=== PATIENT | female | born 1985 | race Caucasian/White ===

== ENCOUNTER → 2024-02-24 | Outpatient (CLI) | payer SELFPAY, OTHER ==
--- NOTE | 2024-02-24 12:36 | US_ITS ---
INDICATION: prolapse EXAMINATION: Ultrasound US Pelvis Non OB Complete With Transvaginal Imaging TECHNIQUE: Transabdominal and transvaginal pelvic ultrasound was performed. Grayscale, spectral waveform, and color flow Doppler evaluation of the adnexa. COMPARISON: None. FINDINGS: UTERUS: Anteverted. The uterus measures 10 cm in length.. There is no uterine mass. The endometrial stripe measures 9 mm in AP diameter which is within normal limits. RIGHT OVARY: Not visualized. Dilated right ovarian veins measuring up to 8 mm. LEFT OVARY: Measures 2.8 x 3.1 x 1.8 cm. Non-enlarged, normal echogenicity. There is normal arterial inflow and venous outflow present in the left ovary. 2 cm dominant follicle. Dilated left ovarian veins measuring up to 10 mm. FREE FLUID: None. US/Pelvic w/ Transvaginal IMPRESSION: Pelvic congestion syndrome. Electronically Signed: Rafael Alexander MD at 23:34 EDT ,
--- NOTE | 2024-02-24 12:37 | US_ITS ---
INDICATION: PROLAPSE UNILATERAL FALLOPIAN TUBE EXAMINATION: Ultrasound US Kidney(s) complete (eg, kidneys and bladder) TECHNIQUE: Preston scale and color doppler images were obtained of the kidneys. COMPARISON: None. FINDINGS: RIGHT KIDNEY: Measures 10.6 cm in length.. There is no hydronephrosis. No shadowing calculus, focal lesion or perinephric collection is demonstrated. LEFT KIDNEY: Measures 11.1 cm in length.. There is no hydronephrosis. No shadowing calculus, focal lesion or perinephric collection is demonstrated. URINARY BLADDER: No acute abnormality. US/Kidney and Bladder IMPRESSION: Normal renal ultrasound. Electronically Signed: Rafael Alexander MD at 0:04 EDT ,
== END | disposition home or self-care (01) ==
PROVIDERS: PCP Family Medicine; Referring Provider Urology; Visit Provider Urology
DX: N83.4 Prolapse and hernia of ovary and fallopian tube (principal)
CPT/HCPCS: 76770; 76830; 76856

== ENCOUNTER 2024-09-23 07:49 | Inpatient (IN) | payer SELFPAY, OTHER ==
[2024-06-25 10:57] LABS: Hemoglobin 12.1 g/dL (12.0-15.0); Mean Corp Hgb Conc 32.7 g/dL (32-36); Mean Corpuscular Hgb 28.6 pg (27.0-32.0); Mean Corpuscular Volume 87.5 fL (81-99); Mean Platelet Vol. 9.5 fl (6.2-12.0); Platelet Count 295 K/mm3 (150-450); RBC Distribution Width CV 12.7 % (11.6-14.6); RBC Distribution Width SD 40.9 fl (35.1-43.9); Red Blood Count 4.23 M/mm3 (4.2-5.4); White Blood Count 6.1 K/mm3 (4.4-11.0)
[2024-06-25 11:09] LABS: Magnesium 2.1 mg/dL (1.6-2.6)
[2024-06-25 11:11] LABS: Internal QC Validated? YES +Cl - CLEAR BKGD; Pregnancy, Urine Negative Negative
[2024-06-25 11:12] LABS: Anion Gap 3 (5-15); BUN 18 mg/dL (7-18); Calcium,Total 9.2 mg/dL (8.5-10.1); Chloride 107 mmol/L (98-107); Creatinine, Serum 0.72 mg/dL (0.55-1.02); EST Glomerular Filtration Rate 97 mL/min (>60); Est Glom Filt Rate - Afr Amer 117 mL/min (>60); Glucose 76 mg/dL (74-106); Potassium 4.1 mmol/L (3.5-5.1); Sodium Level 139 mmol/L (136-145)
--- NOTE | 2024-09-19 13:44 | PAT.ANE_ITS ---
Pre-Assessment Diagnosis/Proposed Procedure Planned Operative Procedure(s): LAV BSO PER DR ROMERO A&P REPAIR PER DR PINON Anesthesia History Anesthesia History - user experience team lead: Anesthesia History - user experience team lead Hx Hospitalization No 09/19/24 13:38 Any Problems With Anesthesia No 09/19/24 13:38 Cholinesterase deficiency No 09/19/24 13:38 You/Your Family Experience No 09/19/24 13:38 fever (hyperthermia) with Relationship Recent Exposure to Contagious Disease Does patient have nerve No 09/19/24 13:38 stimulator Patient instructed to have device shut off --Does patient have Pacemaker or ICD? When Was Last Pacemaker Check QUESTION #4 FULL TEXT: You/Your Family Experience fever (hyperthermia) with Anesthesia Last Oral Intake Last Oral intake: Last Oral Intake NPO since Meds taken in AM with sips of water? Meds patient instructed to take am of surgery PONV PONV - user experience team lead: PONV - user experience team lead Female Yes 09/19/24 13:38 HX of Motion Sickness No 09/19/24 13:38 HX of N/V After Surgery No 09/19/24 13:38 Non-Smoker Yes 09/19/24 13:38 Duration of Surgery greater Yes 09/19/24 13:38 than 60 minutes Number of Risk Factors 3 09/19/24 13:38 PONV Score Moderate Risk 09/19/24 13:38 Height & Weight Height & Weight: Anesthesia: Height & Weight Height 5 ft 3 in 08/30/24 13:48 Respiratory Assessment Respiratory Assessment - user experience team lead: Respiratory Tract Infection Hx - user experience team lead Hx Respiratory Tract Infection No 09/19/24 13:38 STOP Sleep Apnea STOP Sleep Apnea - user experience team lead: STOP Sleep Apnea - user experience team lead Hx Hypertension No 09/19/24 13:38 Hx Sleep Apnea No 09/19/24 13:38 CPAP BIPAP Do you snore loudly (louder No 09/19/24 13:38 than talking or can be heard Do you often feel tired/ No 09/19/24 13:38 fatigued/ sleepy during daytime? Has anyone observed you stop No 09/19/24 13:38 breathing during sleep? STOP Results Negative 09/19/24 13:38 QUESTION #5 FULL TEXT : Do you snore loudly (louder than talking or can be heard through closed doors)? Tobacco Use History Tobacco Use History - user experience team lead: Tobacco Use History - user experience team lead Tobacco Use Smoking Status Never smoker 09/19/24 13:38 Hx Tobacco Use No 09/19/24 13:38 Years Smoking Packs Smoked per Day Smoking Cessation Date was within the last 15 years Hx Smoking Cessation Date Hx Smoking Cessation Counseling Hematologic Medial History Hematologic Hx - user experience team lead: Hematologic Medical Hx - surveillance operator Hx of Blood Transfusion No 09/19/24 13:38 Hx of Transfusion in last 3 No 09/19/24 13:38 Months Date of Last Transfusion (if within last 3 months) Ever experience any problems No 09/19/24 13:38 with transfusion(s)? Specify any problems Hx of Preganancy in last 3 No 09/19/24 13:38 Months Nurse Filling Out Transfusion NBUCHER 09/19/24 13:38 & Questions: Date: 09/19/24 09/19/24 13:38 Time: 13:38 09/19/24 13:38 Patient unable to answer at this time (ie. confused, unrespo /Reproduction History /Reproductive History - user experience team lead: /Reproductive Hx- user experience team lead Hx Now No 09/19/24 13:38 Gestational Age (in weeks): EDC: Hx Hx Para Hx Section SAB No 09/19/24 13:38 PFSH Medical History Wears glasses Female bladder prolapse Low iron Non-smoker Home Medications ?Medication ?Instructions ?Recorded ?Last Taken ?Type calcium carbonate (Calcium 600) 600 mg PO DAILY Unknown History multivitamin 1 tab PO DAILY 10/06/23 Unkn own History magnesium 200 mg tablet 200 mg PO DAILY 09/19/24 Unk nown History Allergy/AdvReac Type Severity Reaction Status Date / Time No Known Allergies Allergy Verified 09/19/24 13:37 Family History Aunt Breast cancer Aunt Colon cancer Surgical History H/O tubal ligation Status post bilateral salpingectomy S/P tonsillectomy Social History household members: spouse current occupational status: employed current occupation: [employer] Smoking Status: Never smoker alcohol intake: never substance use type: does not use seatbelt use: always do you feel safe at home: Yes additional social history: - [employer] Recommendation Anesthesia Recommendation Anesthesia recommendation: OPTIMIZED for anesthesia
[2024-09-19 17:02] LABS: Hematocrit 33.5 % (37-47); Hemoglobin 10.9 g/dL (12.0-15.0); Mean Corp Hgb Conc 32.5 g/dL (32-36); Mean Corpuscular Volume 89.1 fL (81-99); Mean Platelet Vol. 10.9 fl (6.2-12.0); Platelet Count 206 K/mm3 (150-450); RBC Distribution Width SD 42.3 fl (35.1-43.9); Red Blood Count 3.76 M/mm3 (4.2-5.4); White Blood Count 3.4 K/mm3 (4.4-11.0)
[2024-09-23] VITALS (15 sets, daily range): BP systolic 96–112; BP diastolic 64–73; PULSE 56–92; RESP 11–18; TEMP 36.3–36.9; O2SAT 97–100; BMI 28.7; BMI 28.3
[2024-09-23 05:44] LABS: Internal QC Validated? YES +Cl - CLEAR BKGD; Pregnancy, Urine Negative Negative
[2024-09-23] MEDS: Gabapentin 600 MG Tablet PO (06:22)
[2024-09-23] MEDS: Lactated Ringers 1,000 ML 40 ML IV (06:22)
[2024-09-23] MEDS: Acetaminophen 500 MG Tablet 1000 MG PO ×3 (06:22→17:20)
[2024-09-23] MEDS: Magnesium 1 GM over 15 mins IV (06:23)
--- NOTE | 2024-09-23 06:54 | PRE.ANES_ITS ---
ASA Classification* ASA Classification ASA Classification: 1 Assessment & Plan Anesthesia* Anesthesia Assessment Anesthesia Assessment: Discussed sedation and/or anesthesia options, risks, benefits, and alternatives with patient/parents/legal guardian/POA. Questions invited. The patient/parents/legal guardian/POA seems to understand and agrees to proceed with anesthesia plan. Reviewed the physical assessment, medical history, allergy history and patient home medications list prior to surgery/procedure/anesthetic and documented any changes. Performed airway and anesthesia risk assessments. Anesthesia Type Anesthesia Type: General History Source History Obtained from:: Patient and Chart Anesthesia Focused Assessment* Temperature: 98.5 F Pulse Rate: 82 Blood Pressure: 112/70 Respiratory Rate: 16 Pulse Ox: 100 Oxygen Delivery Method: Room Air Airway Assessment Mouth opens: 1 cm Mallampati Score: I Teeth Condition: Intact Neck Range of motion (ROM): Full ROM Focused Labs Anesthesia Preop lab: CBC WBC 3.4 K/mm3 (4.4-11.0) L 09/19/24 13:47 09/19/24 RBC 3.76 M/mm3 (4.2-5.4) L 09/19/24 13:47 09/19/24 Hgb 10.9 g/dL (12.0-15.0) L 09/19/24 13:47 5 Hct 33.5 % (37-47) L 09/19/24 13:47 09/19/24 Plt Count 206 K/mm3 (150-450) 09/19/24 13:47 09/19/24 CHEMISTRY Potassium 4.1 mmol/L (3.5-5.1) 06/25/24 10:37 06/25/24 Sodium 139 mmol/L (136-145) 06/25/24 10:37 06/25/24 Magnesium 2.1 mg/dL (1.6-2.6) 06/25/24 10:37 06/25/24 BUN 18 mg/dL (7-18) 06/25/24 10:37 06/25/24 Creatinine 0.72 mg/dL (0.55-1.02) 06/25/24 10:37 06/25/24 Glucose 76 mg/dL (74-106) 06/25/24 10:37 06/25/24 COAG Urine Test Negative Negative 09/23/24 05:30 09/23/24 Pre-Assessment Diagnosis/Proposed Procedure Planned Operative Procedure(s): LAVH BSO PER DR ROMERO A&P REPAIR PER DR PINON Anesthesia History 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 When Was Last Pacemaker Check QUESTION #4 FULL TEXT: You/Your Family Experience fever (hyperthermia) with Anesthesia Last Oral Intake Last Oral intake: Last Oral Intake NPO since 03:30 09/23/24 06:04 Meds taken in AM with sips of No 09/23/24 06:04 water? Meds patient instructed to take am of surgery Any additional information?: Yes NPO since: 03:30 (Patient had preop Ensure at 3:30 AM.) Meds taken in AM with sips of water?: No PONV PONV - mechanical process engineer: PONV - mechanical process engineer Female Yes 09/19/24 13:38 HX of Motion Sickness No 09/19/24 13:38 HX of N/V After Surgery No 09/19/24 13:38 Non-Smoker Yes 09/19/24 13:38 Duration of Surgery greater Yes 09/19/24 13:38 than 60 minutes Number of Risk Factors 3 09/19/24 13:38 PONV Score Moderate Risk 09/19/24 13:38 Height & Weight Height & Weight: Anesthesia: Height & Weight Height 5 ft 3 in 09/23/24 06:04 Weight: 73.482 kg 09/23/24 06:04 Body Mass Index (BMI) 28.7 09/23/24 06:04 Respiratory Assessment Respiratory Assessment - mechanical process engineer: Respiratory Tract Infection Hx - mechanical process engineer Hx Respiratory Tract Infection No 09/19/24 13:38 STOP Sleep Apnea STOP Sleep Apnea - mechanical process engineer: STOP Sleep Apnea - mechanical process engineer Hx Hypertension No 09/19/24 13:38 Hx Sleep Apnea No 09/19/24 13:38 CPAP BIPAP Do you snore loudly (louder No 09/19/24 13:38 than talking or can be heard Do you often feel tired/ No 09/19/24 13:38 fatigued/ sleepy during daytime? Has anyone observed you stop No 09/19/24 13:38 breathing during sleep? STOP Results Negative 09/19/24 13:38 QUESTION #5 FULL TEXT : Do you snore loudly (louder than talking or can be heard through closed doors)? 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 Specify any problems Hx of Preganancy in last 3 No 09/19/24 13:38 Months Nurse Filling Out Transfusion NBUCHER 09/19/24 13:38 & Questions: Date: 09/19/24 09/19/24 13:38 Time: 13:38 09/19/24 13:38 Patient unable to answer at this time (ie. confused, unrespo /Reproduction History /Reproductive History - mechanical process engineer: /Reproductive Hx- mechanical process engineer Hx Now No 09/19/24 13:38 Gestational Age (in weeks): EDC: Hx Hx Para Hx Section SAB No 09/19/24 13:38 Active Medications Active Medications: Current Medications Generic Name Dose Route Start Last Admin Trade Name Freq PRN Reason Stop Dose Admin Acetaminophen 1,000 mg 09/23/24 07:30 09/23/24 06:22 Acetaminophen 500 Mg Tablet PO 09/23/24 07:31 1,000 mg PREOP ONE Administration Gabapentin 600 mg 09/23/24 07:30 09/23/24 06:22 Gabapentin 600 Mg Tablet PO 09/23/24 07:31 600 mg PREOP ONE Administration Cefazolin Sodium 2 gm/ N/A 20 mls @ 400 mls/hr 09/23/24 07:30 IV 09/23/24 07:32 PREOP ONE Lactated Ringer's 1,000 mls @ 40 mls/hr 09/23/24 07:30 09/23/24 06:22 IV 40 mls/hr .Q25H NOLVIA Administration Magnesium Sulfate 1 gm/ 102 mls @ 408 mls/hr 09/23/24 07:30 09/23/24 06:23 Dextrose IV 09/23/24 07:44 408 mls/hr X1 ONE Administration Insulin Human Lispro 0 unit 09/23/24 07:30 Insulin Lispro 100 Unit/Ml Insuln.Pen SC 09/23/24 18:00 Q4H PRN PRN BG >/= 180, SEE PROTOCOL Protocol Ondansetron HCl 4 mg 09/23/24 07:30 Ondansetron 4 Mg/2 Ml Vial IV 09/23/24 07:31 X1 ONE PFSH Medical History Wears glasses Female bladder prolapse Low iron Non-smoker Home Medications ?Medication ?Instructions ?Recorded ?Last Taken ?Type calcium carbonate (Calcium 600) 600 mg PO DAILY 09/21/24 History multivitamin 1 tab PO DAILY 10/06/2308/16 History magnesium 200 mg tablet 200 mg PO DAILY 09/19/2408/16 History Allergy/AdvReac Type Severity Reaction Status Date / Time No Known Allergies Allergy Verified 09/23/24 05:53 Family History Aunt Breast cancer Aunt Colon cancer Surgical History H/O tubal ligation Status post bilateral salpingectomy S/P tonsillectomy Social History household members: spouse current occupational status: employed current occupation: [employer] Smoking Status: Never smoker alcohol intake: never substance use type: does not use seatbelt use: always do you feel safe at home: Yes additional social history: - [employer] Review of Systems (Anesthesia) ROS Narrative System reviewed and no additional complaints, except as documented.
--- NOTE | 2024-09-23 07:30 | UT_PTH ---
PATIENT: SUHA CHÁVEZ LOC: MS3 U#:[id number] AGE/SX: 39/F ROOM: NC313 RE09/23/[address]: Dr. Belen Franklin MD : 1985 BED: 1 DIS: 09/24/2024 SPEC #: [id number] RECD: 09/23/24 13:46 STATUS: BRENDA SHEPPARD #: [id number] ALBER: 09/23/24 07:[address]: Belen Franklin DEPT: SURGICAL PATHOLOGY RECD BY: Trell Manuel ENTERED: 09/23/24 13:47 SP TYPE: UTERUS OTHR DR: MD Dr. Andreea Styles MD Dr. John Vaccariello, MD Tissues: A - Uterus, NOS B - Vagina, NOS Procedures: Surgery Specimen Level III Surgery Specimen Level V HEADER OPERATION: RONDA GREENFIELD, left salpingectomy PRE-OP DIAGNOSIS: Cystocele and rectocele with incomplete uterovaginal prolapse TISSUE SUBMITTED: A- Uterus, cervix and left fallopian tube, B- Cul - De- Sac lesion MICROSCOPIC DIAGNOSIS A. Uterus, cervix, left fallopian tube, hysterectomy with left salpingectomy: - Cervix: mild hyperkeratosis, focal endocervical erosion - Endometrium: secretory phase - Myometrium: no specific pathologic change - Left fallopian tube: status post tubal ligation B. Uterus, cul-de-sac lesion, excision: - Ectopic bone. MICROSCOPIC DESCRIPTION Slides are reviewed. GROSS DESCRIPTION A. Received in formalin in a container labeled with the patient's name, date of , and uterus, cervix, left fallopian tube is a hysterectomy specimen with attached cervix and attached left fimbriated fallopian tube. The fallopian tube is amputated. The uterus with cervix is 135.5 g and 10.0 cm from fundus to ectocervix, 5.0 cm from cornu to cornu, and 4.5 cm from anterior to posterior. The serosa is rodney-pink and grossly unremarkable. The white-pink ectocervix is previously disrupted, 4.2 x 4.0 cm. There is a 1.5 cm slit-like os. The specimen is bivalved to reveal an unremarkable, corrugated endocervical canal. The triangular endometrial cavity is 4.2 cm in length by 3.3 cm in width. There is red-rodney, smooth and glistening endometrium measuring up to 0.3 cm in greatest thickness. The rodney-pink myometrium is 2.2 cm in thickness with no nodules identified. The left fimbriated fallopian tube is 6.0 cm in length by 1.3 cm in diameter with feathery, unremarkable fimbria. The serosa is pink-lin, smooth and glistening, and there is an embedded 1.5 x 0.4 cm Filshie clip at one end. Serial sections reveal a pinpoint lumen. Clay Temperer sections:A1. Anterior cervix with anterior serosal shaveA2. Posterior cervix with posterior serosal shaveA3. Anterior endomyometrium (superficial sections x 2)A4. Posterior endomyometrium (superficial sections x 2)A5. Left fallopian tube with fimbria, bisected B. Received in formalin in a container labeled with the patient's name, date of , and cul-de-sac lesion is a 3.1 x 1.8 x 0.9 cm rodney-brown, irregular, and calcified nodule. The outer surface is roughened and firm. Serial sections reveal rodney-yellow, friable and gritty surfaces. Clay Temperer sections are submitted in B1 following decalcification. [facility] 09-23-2024 CPT:[id number], [id number]
[2024-09-23] MEDS: Cefazolin 2 GM in Syringe IV (07:40)
--- NOTE | 2024-09-23 07:40 | PCM.HP.BLA ---
History and Physical Date of Admission: 09/23/24 Intake Visit Reasons: [facility] Filenet Developer Required: No Is patient in pain?: No Feel stressed/tense/nervous/anxious/difficulty sleeping: not at all Allergies No Known Allergies Allergy (Verified 06/10/24 11:09) Medications ?Medication ?Instructions ?Recorded ?Confirmed ?Type calcium carbonate (Calcium 600) 600 mg PO DAILY 10/06/23 06/24/24 History multivitamin 1 tab PO DAILY 10/06/23 06/24/24 History Is last menstrual period known: Yes Last Menstrual Period: 05/30/24 Post menopausal: No Patient : No : No PFSH Medical History Wears glasses Female bladder prolapse Low iron Non-smoker Surgical History H/O tubal ligation Status post bilateral salpingectomy- partial one sided after operative report reviewed S/P tonsillectomy Family History Aunt Breast cancerAunt Colon cancer Social History household members: spouse current occupational status: employed current occupation: [employer] Smoking Status: Never smoker alcohol intake: never substance use type: does not use seatbelt use: always do you feel safe at home: Yes additional social history: - [employer] [facility] Details: SUHA CHÁVEZ is a 39 year old who presents for preop appointment. she has had prolapse increasing in between pregnancies, worsening during the last , and she has been using a pessary but wanting to have definitive therapy. she has regular menses eveyr month not too heavy or painful, less than 7 days. she feels a vaginal bulge and pressure, history of fast labors, delivered in [facility] in the past. previous tubal ligation in past but unable to only have one tube sterilized due to scarring of other tube. Female Reproductive History Last Menstrual Period: 05/30/24 Menopausal Symptoms: No night sweats History 7 Elective abortions Hx Para 6 Spontaneous abortions Hx # Term Pregnancies Ectopic pregnancies Hx # Pregnancies Multiple births # of living children 6 Past Pregnancies Del. Date Name GA/Weeks Outcome Route Bth Weight Gen Labor Lgth Anesthesia Del Locatn Provider FOB Unknown all svds- ROS Const ROS Unobtainable: All systems reviewed & are unremarkable except as noted in H Constitutional: Denies fatigue, night sweats, weight gain or weight loss ENT ENT: Reports system reviewed and no additional complaints, except as documented Cardio Card: Denies chest pain Resp Resp: Denies cough or dyspnea GI GI: Reports as per HPI; Denies abdominal pain, constipation, nausea or vomiting : Denies nipple discharge, urinary frequency, urinary incontinence, urinary hesitancy, urinary urgency, vaginal discharge, vaginal dryness, vaginal odor or vaginal pruritus Musc Musc: Denies arthralgias, back pain or muscle weakness Skin Skin/Breast: Denies alopecia, change in hair, dry skin, breast mass, breast pain, breast skin changes or nipple discharge Neuro Neuro: Reports system reviewed and no additional complaints, except as documented Psych Psych: Reports system reviewed and no additional complaints, except as documented Endo Endo: Denies cold intolerance, excessive sweating, heat intolerance or polydipsia Nelson/Lymph Hematologic/Lymphatic: Denies easy bleeding, Denies easy bruising and Denies lymphadenopathy Exam Const General: cooperative, healthy appearing, comfortable and no acute distress Nutritional Appearance: well nourished Orientation: alert [facility] Head: normal to inspection Ears: hearing grossly normal bilaterally and external ears normal Nose: external nose normal and nares normal Face and sinus: normal facial exam Eyes General: appearance normal, both eyes and all related structures Neck Neck: normal visual inspection Thyroid: thyroid normal Chest Chest palpation & inspection: normal inspection of the chest Resp Effort & Inspection: normal respiratory effort, able to speak in complete sentences and symmetric chest movement Auscultation: clear to auscultation bilaterally Cardio Rate: regular rate Rhythm: regular rhythm Heart Sounds: S1 normal and S2 normal GI Inspection: normal to inspection and non-distended Palpation: soft and no hepatosplenomegaly General: bladder normal to palpation External Female Exam: normal external appearance and normal appearance of the urethra Urethra: normal appearance of the urethra Speculum Exam - Vagina: normal appearance of the vagina, no lesions, vaginal bleeding (currently on menstrual cycle.) and nontender Speculum Exam - Cervix: normal appearance of the cervix and nontender Bimanual Exam- Vagina & Uterus: normal bimanual exam, uterine size normal, bladder normal to palpation, uterine shape normal, No tender, uterine mobility normal, consistency normal, normal palpation and non-tender Bimanual Exam- Adnexa, other: rectocele (stage 2-3) and cystocele (Stage III) Pelvic Support: cystocele (Stage III) and rectocele (stage 2-3) OB/External & Speculum: vaginal bleeding (currently on menstrual cycle.) Speculum Exam: vaginal bleeding (currently on menstrual cycle.) Musc Other: gross motor intact no deficits, full bilateral strength Skin General: no rashes or lesions noted Neuro General: patient alert, patient awake, moves all extremities and no focal motor deficits Motor: muscle tone normal throughout Extrem General: normal to inspection and no pedal edema Psych Appearance: grossly normal Mental Status: mental status grossly normal Affect: normal affect Speech and Movement: speech and movement normal Coding Level of Care Code No Charge Diagnoses Cystocele and rectocele with incomplete uterovaginal prolapse N81.2 Assessment and Plan Assessment and Plan (1) Cystocele and rectocele with incomplete uterovaginal prolapse: Status: Acute Comment: Ring with support size 5 Recommend LAVH not TVH due to scar tissue Plan: will coordinate care with dr nelson's office, plan Pelvic US and plan TVHBS. obtain operative report to determine anatomy After discussing the patient's diagnosis and treatment plan options, patient wishes to proceed with surgical management. I have discussed with the patient the risks, benefits, and alternatives of the procedure which include but are not limited to risks of anesthesia, bleeding, infection, possible damage to bowel, bladder, or surrounding vasculature which could lead to additional surgery to evaluate any complications. Patient agrees to procedure and wishes to proceed. ACOG/uptodate references given for additional information regarding procedure. UPDATE- I have seen the patient and performed any clinically relevant updates to the history and physical exam. Belen Franklin MD
--- NOTE | 2024-09-23 07:42 | OP.PCM_ITS ---
Problems Associated Problem List Diagnoses (1) Cystocele and rectocele with incomplete uterovaginal prolapse: Procedures Urinary/Genital [id number]: [id number] LAVH+BS/O <250gr Uterus Operative Report (Standard) Operative Information Date of Procedure: 09/23/24 Pre-Operative Diagnosis: see problem list Post-Operative Diagnosis: same Surgery/Procedure Performed: laparoscopic assisted vaginal hysterectomy left salpingectomy deputy general counsel: Yes [employer] Supervisor: Zhane Wei Tasks completed by assistant plant control operator: Opening & closing, Trocar and Retracting Additional assistant strength coach?: No Type of Anesthesia: General RN Documented Start/Stop Times: Operation Date: 09/23/24 07:30 Case Time Into Pre-Op 09/23/24 05:32 Out of Pre-Op 09/23/24 07:23 Anesthesia Start 09/23/24 07:29 Into Room 09/23/24 07:29 Procedure Start 09/23/24 08:05 Procedure End 09/23/24 10:48 Anesthesia End 09/23/24 10:59 Out of Room 09/23/24 10:59 Into Recovery 09/23/24 11:00 Out of Recovery 09/23/24 12:17 Procedure Start Time: 08:05 Procedure Stop Time: 10:48 Select all DRAINS/GRAFTS/IMPLANTS that apply: Drains (sosa) Drain details: sosa Estimated Blood Loss: 200 Fluids Replaced: crystalloid Specimen collected: Yes Description of specimen(s) removed: uterus and tube Description of surgery: Patient received preoperative antibiotics and SCDs were on preoperatively. Patient was taken back to the operating room and placed in the dorsal lithotomy position. General anesthesia was induced and patient was prepped and draped in normal sterile fashion. Uterine manipulator was placed inside the uterus and Sosa catheter placed in the bladder. The umbilicus was grasped with towel clamps and an intraumbilical incision was made after injecting with quarter percent Marcaine and a Veress needle entered into the abdomen confirmed to be intra-abdominal with a low opening pressure. Abdomen was insufflated with CO2 gas and the Veress needle removed and the 5 mm trocar was placed under direct visualization without complication. Right and left lower quadrants were transilluminated and injected with quarter percent Marcaine and 5 mm ports placed under direct visualization. Pelvis was well visualized see operative findings for additional information. the right tube and ovary was noted to be completely absent but the right ureter was present. omental to anterior abdominal wall adhesions were taken down without complication, and after removing the scar tissue from the left sigmoid colon to the left tube, the left fallopian tube was identified and transected with the LigaSure device across the mesosalpinx to the level of the utero-ovarian ligament which was also transected with the LigaSure device. The broad ligament was opened up by transecting the round ligament bilaterally and skeletonizing the uterine vessels bilaterally, and creating a bladder flap using the LigaSure device. The uterine arteries were transected bilaterally with good visualization of the bladder and the ureters were seen to be inferior lateral to the operative area. pelvic congestion syndrome was noted with significant increased vessels seen biaterally. Attention was then paid to the vaginal portion of the procedure and the cervix was grasped with Arnav clamps and circumferentially injected with dilute vasopressin. A circumferential incision was made and the vaginal mucosa was mobilized off posteriorly and the cul-de-sac entered into sharply and a longneck speculum placed. The anterior cul-de-sac was then identified and entered into sharply. The uterosacral ligaments were clamped cut and suture ligated with 0 Monocryl bilaterally followed by the cardinal ligaments which were clamped cut and suture ligated bilaterally with 0 Monocryl. The uterus serially descended and was removed without difficulty with minimal morcellation. Pelvic sidewall pedicles were checked and noted to have excellent hemostasis. there was a torsed epiploica that was adhesed in the cul de sac that was removed, and then hemoblast placed over the area for hemostasis. The vaginal mucosa was reapproximated incorporating the posterior peritoneum. This was reapproximated using 0 Vicryl omriig-od-isyol sutures. Excellent hemostasis was noted. Attention paid to the abdominal portion of the procedure again. The pelvis and cul-de-sac was well visualized and no significant active bleeding noted but some raw areas were seen on the peritoneum and therefore floseal was applied. Pressure was taken down and the areas visualized and noted of excellent hemostasis. All ports were removed under direct visualization without complication and the abdomen was desufflated of air. The instruments removed from the abdomen and the vagina vaginal sweep was negative. Port sites on the abdomen were closed with 4-0 Monocryl interrupted sutures and Steri's and windows were applied. Dr Baldwin then began her portion of the procedure. Surgical Findings: nl uterus left tube and cystic ovary absent right rube and ovary Complications Complications: No
--- NOTE | 2024-09-23 07:43 | DCINST_ITS ---
Discharge Instructions DC O2, CPAP, BIPAP needs Home O2 Discharge instructions: No Follow Up Care Test Results: Test results from this visit will be discussed in further detail at your follow- up appointment, if applicable. Discharge Plan Admission Attending Provider: Belen Franklin Primary Care Provider: Nickolas Cao Consulting Providers: John Echeverria; Andreea Baldwin Instructions Print Language: Setswana Discharge Orders/Prescriptions Prescriptions: New oxycodone-acetaminophen [Percocet] 5-325 mg tablet 1 tab PO Q4H PRN (Reason: pain) 7 Days Qty: 20 0RF naproxen 500 mg tablet 500 mg PO BID PRN PRN (Reason: Pain) Qty: 30 1RF No Action multivitamin Tablet 1 tab PO DAILY calcium carbonate [Calcium 600] 600 mg calcium (1,500 mg) tablet 600 mg PO DAILY magnesium 200 mg tablet 200 mg PO DAILY Referrals / Follow Up: Nickolas Cao MD [Primary Care Provider] - Disposition Disposition (needs filled in before D/C Order can be placed): Home, Self Care
[2024-09-23] MEDS: Bupivacaine 0.25% 30 ML Vial (08:05)
[2024-09-23] MEDS: Vasopressin 20 UNITS/ML Vial (08:45)
[2024-09-23 10:23] LABS: Bedside Glucose 71 mg/dL (74-106)
[2024-09-23 10:23] LABS: Bedside Glucose 75 mg/dL (74-106)
[2024-09-23] MEDS: Ondansetron 4 MG/2 ML Vial IV (10:48)
--- NOTE | 2024-09-23 11:04 | PCM.POST.ANE ---
Anesthesia: Postop Eval I Current Vital Signs Temperature: 97.3 F Pulse Rate: 63 Blood Pressure: 96/65 Respiratory Rate: 16 Pulse Ox: 100 Oxygen Delivery Method: Room Air Assessment Airway patent: Yes Spontaneous unlabored respirations: Yes Mental status: Asleep nausea: No Vomiting: No Anesthesia Complication: No Fluid Hydration Crystalloid volume administer (ml): 1,600 Total IV fluid infused: 1,600 Progress Note Anesthesia document: Postop Eval 1 completed: Yes
--- NOTE | 2024-09-23 11:22 | OP.PCM_ITS ---
Operative Report (Standard) Operative Information Date of Procedure: 09/23/24 Pre-Operative Diagnosis: Incomplete uterovaginal prolapse Post-Operative Diagnosis: Same Surgery/Procedure Performed: Posterior repair, cystoscopy with bilateral ureteral catheterization associate professor of music: Yes Associate Financial Advisor: Zhane Wei Tasks completed by media center assistant: Retracting Type of Anesthesia: General RN Documented Start/Stop Times: Operation Date: 09/23/24 07:30 Case Time Into Pre-Op 09/23/24 05:32 Out of Pre-Op 09/23/24 07:23 Anesthesia Start 09/23/24 07:29 Into Room 09/23/24 07:29 Procedure Start 09/23/24 08:05 Procedure End 09/23/24 10:48 Anesthesia End 09/23/24 10:59 Out of Room 09/23/24 10:59 Into Recovery 09/23/24 11:00 Procedure Start Time: 08:05 Procedure Stop Time: 10:48 Select all DRAINS/GRAFTS/IMPLANTS that apply: Drains Drain details: Ontiveros catheter Estimated Blood Loss: 75 cc Specimen collected: No Description of surgery: The patient is a 39-year-old female with significant incomplete uterovaginal prolapse. She presents for surgical intervention. Informed consent was obtained. She was taken to the operating room and placed on the operating room table. Anesthesia monitored the head, neck, airway, IV access and vital signs throughout the case. Once anesthesia was appropriately administered, she was prepped and draped in usual sterile fashion. A Ontiveros catheter was inserted using sterile technique the bladder was drained. Dr. Franklin performed her portion of the procedure and turned the case over to me. At this time, the vault showed no defect and the rugae of the anterior vaginal wall were intact with no significant cystocele present. Posteriorly however, there is a significant rectocele defect. At this time, the Ontiveros catheter was once again removed and the cystoscope was inserted into the urinary bladder under direct visualization. There was no evidence of injury, laceration or foreign body present. The whistle-tip catheter was used to cannulate the right ureteral orifice were easily advanced to 20 cm with no evidence of injury or obstruction. This was then repeated on the patient's left side with the same findings. The cystoscope and whistle-tip catheter were then removed and the Ontiveros catheter was replaced with 10 cc in the balloon. I then proceeded to reconstruct her posterior vaginal wall. The submucosa was injected with Marcaine. A midline incision was made and sharp and blunt dissection was performed bilaterally until the rectovaginal fascia was identified. This fascia was brought together in a 2 layer closure first using 3-0 PDS followed by 2-0 Vicryl. Throughout this procedure the patient had significant amounts of oozing from any manipulation of her tissue. Her vaginal tissue was very weak and easily torn. After the perineal body and the rectocele defect were repaired, the vaginal incision was closed using running interlocking 2-0 Vicryl. At this time, the Ontiveros catheter was once again removed and the cystoscope was inserted into the urinary bladder under direct visualization. There was no evidence of injury, laceration or foreign body present. The whistle-tip catheter was used to cannulate the right ureteral orifice were easily advanced to 20 cm with no evidence of injury or obstruction. This was then repeated on the patient's left side with the same findings. The cystoscope and whistle-tip catheter were then removed and the Ontiveros catheter was replaced with 10 cc in the balloon. The vagina was packed with saline moistened plain packing. She was awakened and taken to the recovery room in good condition. There were no complications during this procedure. Surgical Findings: After hysterectomy, no significant cystocele remained. Rugated were intact and vaginal vault was supported Complications Complications: No Admit VTE Documentation VTE Present on Admission: Yes VTE Mechan Device Prophylaxis: SCD's VTE Pharm Prophylaxis ordered?: Yes
--- NOTE | 2024-09-23 11:38 | POSTOPAN2_ITS ---
Anesthesia Postop Eval I Sum Postop Eval Completion status Anesthesia document: Postop Eval 1 completed: Yes Anesthesia Postop Eval I Summary Anesthesia Postop Eval I Summary: Anesthesia Postop Eval I: Assessment Summary Airway patent Yes 09/23/24 11:05 DISTRIBUTION SYSTEMS SUPERINTENDENT.[email or web address] Spontaneous unlabored Yes 09/23/24 11:05 DISTRIBUTION SYSTEMS SUPERINTENDENT.[email or web address] respirations Mental status Asleep 09/23/24 11:05 DISTRIBUTION SYSTEMS SUPERINTENDENT.[email or web address] nausea No 09/23/24 11:05 DISTRIBUTION SYSTEMS SUPERINTENDENT.[email or web address] Vomiting No 09/23/24 11:05 DISTRIBUTION SYSTEMS SUPERINTENDENT.[email or web address] Anesthesia Postop Eval I: Fluid Summary Crystalloid volume administer 1,600 09/23/24 11:05 DISTRIBUTION SYSTEMS SUPERINTENDENT.[email or web address] (ml) Colloids volume administered ( ml) Blood Product volume administered (ml) Total IV fluid infused 1,600 09/23/24 11:05 DISTRIBUTION SYSTEMS SUPERINTENDENT.[email or web address] Anesthesia Postop Eval I: Summary Notes Anesthesia Complication No 09/23/24 11:05 DISTRIBUTION SYSTEMS SUPERINTENDENT.[email or web address] Anesthesia Complication Comment: Post-operative progress note Anesthesia: Postop Eval II Evaluation Mental status: Awake Pain Level: 4 nausea: No Vomiting: No
--- NOTE | 2024-09-23 11:38 | PCM.POSTANE2 ---
Anesthesia Postop Eval I Sum Postop Eval Completion status Anesthesia document: Postop Eval 1 completed: Yes Anesthesia Postop Eval I Summary Anesthesia Postop Eval I Summary: Anesthesia Postop Eval I: Assessment Summary Airway patent Yes 09/23/24 11:05 DONOR [email or web address] Spontaneous unlabored Yes 09/23/24 11:05 DONOR [email or web address] respirations Mental status Asleep 09/23/24 11:05 [email or web address] [email or web address] nausea No 09/23/24 11:05 DONOR [email or web address] Vomiting No 09/23/24 11:05 DONOR [email or web address] Anesthesia Postop Eval I: Fluid Summary Crystalloid volume administer 1,600 09/23/24 11:05 DONOR [email or web address] (ml) Colloids volume administered ( ml) Blood Product volume administered (ml) Total IV fluid infused 1,600 09/23/24 11:05 DONOR [email or web address] Anesthesia Postop Eval I: Summary Notes Anesthesia Complication No 09/23/24 11:05 DONOR [email or web address].[email or web address] Anesthesia Complication Comment: Post-operative progress note Anesthesia: Postop Eval II Evaluation Mental status: Awake Pain Level: 4 nausea: No Vomiting: No
[2024-09-23] MEDS: Ketorolac 30 MG/ML Syringe IV (11:49)
[2024-09-23] MEDS: Lactated Ringers 1,000 ML 70 ML IV (14:37)
[2024-09-23] MEDS: Docusate Sodium 100 MG Capsule 200 MG PO (21:03)
[2024-09-23] MEDS: Cephalexin 500 MG Capsule PO (21:03)
[2024-09-24] MEDS: Acetaminophen 500 MG Tablet 1000 MG PO ×2 (00:01→13:24)
[2024-09-24 00:13] VITALS: BP 124/73; PULSE 86; RESP 16; TEMP 36.6; O2SAT 97
[2024-09-24 04:20] VITALS: BP 106/75; PULSE 72; RESP 16; TEMP 37.1; O2SAT 96
[2024-09-24] MEDS: Lactated Ringers 1,000 ML 70 ML IV (05:04)
[2024-09-24 06:06] LABS: Hematocrit 30.5 % (37-47); Hemoglobin 9.8 g/dL (12.0-15.0); Mean Corp Hgb Conc 32.1 g/dL (32-36); Mean Corpuscular Hgb 28.1 pg (27.0-32.0); Mean Corpuscular Volume 87.4 fL (81-99); Mean Platelet Vol. 10.1 fl (6.2-12.0); Platelet Count 309 K/mm3 (150-450); RBC Distribution Width CV 12.6 % (11.6-14.6); RBC Distribution Width SD 40.6 fl (35.1-43.9); Red Blood Count 3.49 M/mm3 (4.2-5.4); White Blood Count 9.5 K/mm3 (4.4-11.0)
[2024-09-24 09:08] VITALS: BP 113/74; PULSE 80; RESP 17; TEMP 37; O2SAT 100
[2024-09-24] MEDS: Docusate Sodium 100 MG Capsule 200 MG PO (09:28)
[2024-09-24] MEDS: Ensure Plus High Protein 120 ML LIQUID PO (09:28)
[2024-09-24] MEDS: Cephalexin 500 MG Capsule PO (09:29)
[2024-09-24] MEDS: 0.9% Saline Lock 10 ML Syringe IV (09:29)
[2024-09-24] MEDS: Enoxaparin 40 MG/0.4 ML Syringe SC (09:29)
[2024-09-24] MEDS: Ketorolac 30 MG/ML Syringe IV (09:29)
--- NOTE | 2024-09-24 09:52 | DCINST_ITS ---
Discharge Instructions Diet Discharge Diet: No restrictions Activity Discharge Activity: May Shower May resume sexual activity in: 8 weeks Lifting Restrictions: 5 pounds Additional Activity Instructions:: No tub bathing, swimming, hot tubs, walking dog, strenuous activity or exercise for 8 weeks Dressing / Incision Call your doctor if your incision/area has: Continuous Slow Oozing, Sudden Increased Bleeding, Increased Pain/ Swelling and Foul Smelling Discharge Call your doctor if you observe: Fever of 101 or Higher, Inability to urinate and Inability to have a bowel movement Suture Line Care: Avoid Pulling/Pushing Cleanse incision/area with: Keep Dressing Clean & Dry Follow Up Care Please Follow Up With: Andreea Baldwin MD When: The office will call to make follow-up arrangements, in 1 to 2 weeks. Test Results: Test results from this visit will be discussed in further detail at your follow- up appointment, if applicable. Discharge Plan Admission Admit Date/Time: 09/23/24 07:49 Attending Provider: Belen Franklin Primary Care Provider: Nickolas Cao Consulting Providers: John Echeverria; Andreea Baldwin Discharge Orders/Prescriptions Prescriptions: New oxycodone-acetaminophen [Percocet] 5-325 mg tablet 1 tab PO Q4H PRN (Reason: pain) 7 Days Qty: 20 0RF naproxen 500 mg tablet 500 mg PO BID PRN PRN (Reason: Pain) Qty: 30 1RF cephalexin 500 mg capsule 500 mg PO Q12 3 Days Qty: 6 0RF Continued multivitamin Tablet 1 tab PO DAILY calcium carbonate [Calcium 600] 600 mg calcium (1,500 mg) tablet 600 mg PO DAILY magnesium 200 mg tablet 200 mg PO DAILY Referrals / Follow Up: Nickolas Cao MD [Primary Care Provider] - Disposition Disposition (needs filled in before D/C Order can be placed): Home, Self Care
--- NOTE | 2024-09-24 09:55 | PCM.PN.GU ---
Subjective Subjective No issues overnight. Pain is controlled, no nausea, vomiting or other issues. Objective Data Objective Data Vital Signs: Vital Signs Temp Pulse Resp BP Pulse Ox O2 Del Method O2 Flow Rate 98.6 F 80 17 113/74 100 Room Air 4 09/24/24 09:08 09/24/24 09:08 09/24/24 09:08 09/24/24 09:08 09/24/24 09:08 09/24/24 09:13 09/23/24 12:13 Oxygen Flow Rate (L/min) 4 Oxygen Delivery Method Room Air Weight: 72.575 kg Body Mass Index (BMI) 28.3 Intake & Output: Intake and Output for Last 24 Hours 09/22/24 09/23/24 09/24/24 23:59 23:59 23:59 Intake Total 1378.33 / 1378.33 1102 / 1102 Output Total 2875 / 6175 4475 / 4475 Balance -1496.67 / -4796.67 -3373 / -3373 Lab / Micro Data 09/24/24 04:52 06/25/24 10:37 Labs: Laboratory Results - last 24 hr 09/23/24 05:57: POC Glucose 71 L 09/23/24 05:59: POC Glucose 75 09/24/24 04:52: WBC 9.5, RBC 3.49 L, Hgb 9.8 L, Hct 30.5 L, MCV 87.4, MCH 28.1, MCHC 32.1, RDW Std Deviation 40.6, RDW Coeff of Tiny 12.6, Plt Count 309, MPV 10.1 Physical Exam Narrative Alert and oriented x 3, in no apparent distress. She is sitting up in bedside chair Abdomen soft, nontender nondistended SCDs in place Ontiveros catheter removed by nursing staff without difficulty I remove the vaginal packing without incident, no concerns Assessment & Plan Assessment/Plan (1) Cystocele and rectocele with incomplete uterovaginal prolapse: (2) S/P laparoscopic assisted vaginal hysterectomy (LAVH): PLAN: Plan Trial of void Home later today
[2024-09-24 11:06] VITALS: O2SAT 95
--- NOTE | 2024-09-24 11:45 | CASEMGMT ---
RN CM Face to Face with patient for initial transition planning/care coordination assessment. RN CM introduced self and role at [facility]. Patient lying in bed, alert and oriented, at bedside. Patient willing to participate in assessment and is able to answer all questions appropriately. Care providers, pharmacy, and demographics verified. Strata: 1 PCP: Kiley Specialists: Pam MARKETING ADMIN; Denny urologist Preferred Pharmacy: [facility] [place] [place] Insurance: [facility] Prescription Benefit: none Living Will/HPOA: none LNOK: Living Arrangements: Patient lives with and 6 children in a 2 story home with bed and bath on first floor. Patient is independent at home. Transportation: driving service DME/HHC: Patient denies DME in the home. No previous HHC or SNF. Patient wishes to discharge home, denies need for home health at this time. Patient states she has no further needs or concerns at this time. CM to follow for discharge planning needs that may arise. Disposition Plan: Patient to discharge home with family support and follow-up plans in place. Renay SAINI, RN, CM
[2024-09-24 13:27] VITALS: BP 107/67; PULSE 94; RESP 16; TEMP 36.8; O2SAT 99
== END 2024-09-24 13:52 | disposition home or self-care (01) | DRG 743 ==
LOC: SDC 11:06 → MS3 11:06
PROVIDERS: Anesthesiology; Urology; Admitting Provider Obstetrics & Gynecology; PCP Family Medicine; Referring Provider Obstetrics & Gynecology; Visit Provider Obstetrics & Gynecology
PROC: 0UT9FZZ Resection of Uterus, Via Natural or Artificial Opening With Percutaneous Endoscopic Assistance (ICD-10-PCS; principal; 2024-09-23 07:05)
PROC: 0JQC0ZZ Repair Pelvic Region Subcutaneous Tissue and Fascia, Open Approach (ICD-10-PCS; CPT 57260; 2024-09-23 07:05)
DX: N81.2 Incomplete uterovaginal prolapse (principal)
CPT/HCPCS: 36415; 80048; 81025; 82962; 83735; 85027; 86850; 86900; 86901; 88304; 88307; 94668; A4216; C1758; J2405; J3475